=== PATIENT | male | born 1980 | race Two or more races ===

== ENCOUNTER 2019-11-18 19:25 | Emergency (ER) | payer OTHER ==
[~2019-11-18] VITALS: Ht 180.3 cm; Wt 127.3 kg
[2019-11-18] MEDS ORDERED: HTN PO (19:27)
[2019-11-18] MEDS ORDERED: TraMADol HCL 50 MG TABLET PO ONE (20:15)
[2019-11-18 22:21] VITALS: BP 119/78
== END 2019-11-18 22:40 | disposition home or self-care (01) ==
LOC: EMS 19:25
DX: S93.402A Sprain of unspecified ligament of left ankle, initial encounter (principal); F17.210 Nicotine dependence, cigarettes, uncomplicated; X50.9XXA Other and unspecified overexertion or strenuous movements or postures, initial encounter; Y93.89 Activity, other specified; Y92.89 Other specified places as the place of occurrence of the external cause; Y99.8 Other external cause status
CPT/HCPCS: 29515